=== PATIENT | female | born 1975 | race Caucasian/White ===

== ENCOUNTER → 2021-01-24 | Outpatient (REF) | payer BC | LOC: M LABCFH 13:07 | PROVIDERS: ATTEND Nurse Practitioner Family | DX: Z12.4 Encounter for screening for malignant neoplasm of cervix (principal) | CPT/HCPCS: 87624; G0123 ==

== ENCOUNTER → 2023-12-03 | Outpatient (REF) | payer BC | LOC: M CFLAB 11:20 | PROVIDERS: ATTEND Physician Assistant | DX: Z12.4 Encounter for screening for malignant neoplasm of cervix (principal) ==

== ENCOUNTER → 2024-01-07 | Outpatient (REF) | payer BC | LOC: M LAB REF 09:03 | PROVIDERS: ATTEND Physician Assistant | DX: Z12.4 Encounter for screening for malignant neoplasm of cervix (principal) ==